=== PATIENT | female | born 1955 | race Caucasian/White ===

== ENCOUNTER 2018-05-21 17:57 | Inpatient (IN) | payer BC, OTHER ==
[~2018-05-21] VITALS: Ht 157.5 cm; Wt 78.6 kg
--- NOTE | ~2018-05-21 | PATH ---
[facility] [address] [place] [address] PATHOLOGY RPT PROCEDURE Name: PAULINA WADSWORTH Room #: 457-P [facility] IN .R.#: [id number] Admission: 05/21/18 Date of : 55 Discharge: 05/22/18 Report #: [id number] Path Case #: [id number] [facility] Accession Number: [id number] . 01 Material submitted: . GALLBLADDER . 01 Clinical history: . Cholecystitis, umbilical hernia . 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 . (SHA:vjm;05/26/2018) AGA/05/26/2018 . 02 Electronically signed: . Latrell Young MD, Pathologist NPI- [id number] . 01 Gross description: . The specimen is received in formalin, labeled "Paulina Wadsworth, gallbladder". Received is a previously opened gallbladder measuring 7.8 x 4.1 x 1.2 cm in greatest dimensions displaying bile-stained serosal surfaces. Further opening of the gallbladder reveals a velvety, bile-stained mucosa with mild, diffuse cholesterolosis, and a gallbladder wall thickness of 0.1 cm. Calculi are present displaying a bright yellow and nodular appearance, and no masses or lesions are noted grossly. Standards Engineer sections, to include the proximal margin, are submitted in cassette A1. (CAA; 05/23/2018) QAC/QAC . 02 Pathologist provided ICD-10: K80.10, K82.4 . 02 CPT . 263183 Specimen Comment: A courtesy copy of this report has been sent to Specimen Comment: [phone], , . Specimen Comment: Report sent to ,DR TAPIA / DR SENA Performed at: [address] [id number] MD Josr Lopez MD Phone: [phone] Performed at: [address] [address] PATHOLOGY RPT PROCEDURE Name: PAULINA WADSWORTH Room #: 457-P [facility] IN M.R.#: [id number] Admission: 05/21/18 Date of : 55 Discharge: 05/22/18 Report #: [id number] Path Case #: [id number] [address] [facility], [place], [place] [id number] MD Linda Collins MD Phone: [phone]
--- NOTE | ~2018-05-21 | O ---
[facility] [place] [address] OPERATIVE REPORT Name: LINDSEY DONAHUE Room #: 457-P [facility] IN .R.#: [id number] Admission: 05/21/18 Attend Phys: Roger Joseph MD Discharge: Date of : 55 Report #: [id number] THIS REPORT FOR: //name// CC: Shannon Joseph POSTOPERATIVE DIAGNOSES: 1. Symptomatic cholelithiasis, possible acute cholecystitis. 2. Elevated liver function tests, possible choledocholithiasis. 3. Umbilical hernia. 4. Hypertension. POSTOPERATIVE DIAGNOSES: 1. Acute cholecystitis. 2. Elevated liver function tests, possible choledocholithiasis. 3. Incarcerated umbilical hernia. 4. Hypertension. PROCEDURE: 1. Laparoscopic cholecystectomy with intraoperative cholangiogram. 2. Laparoscopic primary repair of incarcerated umbilical hernia. ANESTHESIA: General endotracheal anesthesia and local anesthetic. ESTIMATED BLOOD LOSS: 5 mL. SPECIMEN: Gallbladder. COMPLICATIONS: None appreciated. INDICATIONS FOR PROCEDURE: This is a 62-year-old female patient who has had difficulty with intermittent postprandial abdominal pain, nausea, and vomiting over the past 3-4 weeks. She was seen in the [facility], where she underwent an abdominal ultrasound showing multiple gallstones and gallbladder wall thickening to 5 mm with no common bile duct dilatation or pericholecystic fluid. Her liver function tests were elevated, more so at the time of her admission than the following day (today). Her bilirubin went from 1.7 to 1.0. Her transaminases and alkaline phosphatase remained elevated. She presents now for laparoscopic cholecystectomy with intraoperative cholangiogram. OPERATIVE FINDINGS: Upon entrance in the abdominal cavity, the liver, stomach, small bowel and colon in the surrounding area appeared otherwise normal. The gallbladder itself is slightly distended and upon dissection, was also edematous, indicative of acute cholecystitis. The critical view consisting of the cystic artery, cystic duct and lower edge of the gallbladder forming a window through which the liver was visible was seen prior to clipping the cystic [facility] [address] [place] [address] OPERATIVE REPORT Name: LINDSEY DONAHUE Room #: 457-P [facility] IN [facility].#: [id number] Admission: 05/21/18 Attend Phys: Roger Joseph MD Discharge: Date of : 55 Report #: [id number] duct for cholangiogram. The cholangiogram initially showed filling defects distally that appeared to have cleared with flushing and repeat cholangiogram. The final cholangiogram was read out by Radiology as normal, although the common bile duct did appear to be slightly dilated. Also, when creating the cystic duct opening, small gallstones were seen exiting from the opening that had likely been within the cystic duct. These were milked back before shooting the cholangiogram. The three clips were seen to be secure on the cystic duct stump. While removing the gallbladder from the abdominal cavity, the umbilical hernia defect was evident. This required placement of a separate 0 PDS suture for closure of the defect. There was no bowel involvement. The excised gallbladder showed cholesterolosis as well as multiple small nonpigmented gallstones. At the conclusion of the operation, the sponge, needle, and instrument counts were correct. No other significant intra-abdominal pathology was seen. DESCRIPTION OF PROCEDURE IN DETAIL: After the risks, benefits and expectations of the operation were discussed in detail with the patient, informed consent was obtained. The patient was identified in the preoperative holding area. The patient was given IV antibiotics as documented in the chart in line with [facility] metrics. The patient was then taken to the operating room and she was placed in the supine position. SCDs were placed on the patient's bilateral lower extremities and pneumatic compression was initiated. The patient was then given IV sedation and she was intubated without incident. Her abdomen was prepped and draped in the standard sterile fashion. A time-out was performed to identify the correct patient and procedure. Local anesthetic was infiltrated into the skin and subcutaneous tissue supraumbilically where a curvilinear incision was made with a #15 blade scalpel. Dissection was carried down to the fascia. A small fascial opening was created and the 11 mm Visiport was placed intraperitoneally with a 0-degree angled laparoscope. Pneumoperitoneum was then achieved with insufflation of carbon dioxide to 15 mmHg. A 30-degree angled laparoscope was inserted. The patient was placed in the reverse Trendelenburg position, rotated to her left. A subxiphoid 5 mm and right subcostal 5 mm ports x 2 were placed under direct visualization after local anesthetic was infiltrated into the skin and subcutaneous tissue and appropriately sized incisions were made. Operative findings are as noted above. The dome of the gallbladder was retracted in a cephalad direction. The omental adhesions to the gallbladder were carefully taken down with the ultrasound dissector. The gallbladder peritoneum was then scored medially and laterally with the ultrasonic dissector. Dissection was carried out around the cystic artery and cystic duct to identify the critical view as described above. A clip was then placed on the cystic duct at its junction with the neck of the gallbladder. A ductotomy was created sharply. Small gallstones were milked back from the cystic duct. The cholangiocatheter was then inserted and clipped into place. A cholangiogram was performed with findings as noted above. Repeat [address] [address] OPERATIVE REPORT Name: LINDSEY DONAHUE Room #: 457-P [facility] IN [facility]#: [id number] Admission: 05/21/18 Attend Phys: Roger Joseph MD Discharge: Date of : 55 Report #: [id number] cholangiogram showed clearance of the stones. The cholangiocatheter was then removed and the cystic duct was triply clipped, then divided with the ultrasound dissector with a good seal. The cystic artery was divided with the ultrasound dissector with good hemostasis. The gallbladder was then dissected out of the liver bed without entrance into the gallbladder or liver bed. The gallbladder was placed in an Endopouch and removed through the supraumbilical port. While doing so, the hernia was evident. There was no bowel involvement. The incarcerated umbilical hernia was reduced of its content. The excess preperitoneal fat that extended through the hernia was excised. A [id number] 0 PDS suture was then placed with the needle tipped suture grasper under direct visualization. The suture was tied under direct visualization to ensure no incorporation of intra-abdominal content. A 0 PDS suture was then placed to close the port site fascial opening. The suture was also tied under direct visualization to ensure no incorporation of intra-abdominal content. The liver bed was reexamined and the Hemoclips were secure. There was good hemostasis. No other significant findings were present. The abdominal cavity was then desufflated and the ports were removed. Interrupted subcuticular 4-0 Monocryl sutures and Dermabond were used to close the skin incisions. The patient tolerated the procedure well. She was awakened, extubated, and taken to recovery room in stable condition with no apparent intraoperative complications. By: [id number] Angel Buenrostro MD, FACS /nt
[2018-05-21 17:58] VITALS: BP 149/74
[2018-05-21 18:40] LABS: ABSOLUTE NEUTROPHILS 7.8 thou/uL (1.4-8.2); BASOPHILS 0.6 % (0.0-2.0); EOSINOPHILS 0.9 % (0.0-3.0); HEMATOCRIT 38.7 % (37.0-47.0); HEMOGLOBIN 13.4 gm/dL (12.0-15.0); LYMPHOCYTES 9.4 % (24.0-44.0); MCH 31.8 pg (26.0-34.0); MCHC 34.5 g/dL (28.0-37.0); MCV 92.3 fL (80.0-100.0); MONOCYTES 4.6 % (1.0-8.0); PLATELET COUNT 341 thou/uL (150-400); POLYS 84.5 % (36.0-66.0); RDW 13.2 % (10.5-14.5); WBC 9.3 thou/uL (4.0-11.0)
[2018-05-21 18:49] LABS: CALCIUM 9.6 mg/dL (8.5-10.1); CREATININE 0.9 mg/dL (0.6-1.0); POTASSIUM 3.6 mmol/L (3.5-5.1)
[2018-05-21 18:53] LABS: URINE BILIRUBIN NEGATIVE (Negative); URINE BLOOD TRACE (Negative); URINE CLARITY CLEAR; URINE COLOR YELLOW; URINE GLUCOSE-RANDOM* NEGATIVE (Negative); URINE KETONES NEGATIVE (Negative); URINE LEUKOCYTES-REFLEX NEGATIVE (Negative); URINE NITRITE-REFLEX NEGATIVE (Negative); URINE PROTEIN (DIPSTICK) NEGATIVE (Negative); URINE UROBILINOGEN 0.2 E.U./dl (0.2-1.0)
[2018-05-21 19:00] LABS: ALBUMIN 3.6 g/dL (3.4-5.0); DIRECT BILIRUBIN 1.2 mg/dL (<0.1-0.3); TOTAL BILIRUBIN 1.7 mg/dL (<0.1-1.0); TOTAL PROTEIN 7.7 g/dL (6.4-8.2)
[2018-05-21] MEDS ORDERED: COZAAR 25 MG TA25 M1 PO (19:08)
[2018-05-21] MEDS ORDERED: CLONAZEPAM 0.50.5 M1 PO (19:10)
[2018-05-21] MEDS ORDERED: CELEXA10 MG PO (19:10)
[2018-05-21 21:29] VITALS: BP 146/78
[2018-05-21 22:20] VITALS: BP 120/68
[2018-05-22] VITALS (7 sets, daily range): BP systolic 107–123; BP diastolic 56–71
[2018-05-22] MEDS ORDERED: CARDIZEM CD240 MG PO (01:57)
[2018-05-22 05:44] LABS: HEMATOCRIT 39.3 % (37.0-47.0); HEMOGLOBIN 13.2 gm/dL (12.0-15.0); MCH 31.2 pg (26.0-34.0); MCHC 33.7 g/dL (28.0-37.0); MCV 92.6 fL (80.0-100.0); RBC 4.24 mil/uL (4.20-5.00); WBC 5.5 thou/uL (4.0-11.0)
[2018-05-22 06:06] LABS: ALBUMIN 3.2 g/dL (3.4-5.0); CALCIUM 9.3 mg/dL (8.5-10.1); CREATININE 0.9 mg/dL (0.6-1.0); POTASSIUM 3.6 mmol/L (3.5-5.1)
[2018-05-22] MEDS ORDERED: SENNA-S TABLET1 EACH PO (10:51)
[2018-05-22] MEDS ORDERED: NORCO 5-325 TA1 EACH PO (10:51)
[2018-05-22 14:10] LABS: HAV IgM AB (ANTI-HAV IgM) Negative (Negative); HEPATITIS B SURFACE AG Negative (Negative); HEPATITIS C VIRUS AB <0.1 (0.0-0.9)
== END 2018-05-22 20:00 | disposition home or self-care (01) | DRG 418 ==
LOC: ER 17:57 → 4W 20:59 → EROBS 20:59 → 4W 21:42
PROVIDERS: Emergency Medicine; Nurse Practitioner Acute Care
PROC: BF121ZZ Fluoroscopy of Gallbladder using Low Osmolar Contrast (ICD-10-PCS; principal; 2018-05-22)
PROC: 0FT44ZZ Resection of Gallbladder, Percutaneous Endoscopic Approach (ICD-10-PCS; principal; 2018-05-22)
PROC: 0WQF4ZZ Repair Abdominal Wall, Percutaneous Endoscopic Approach (ICD-10-PCS; principal; 2018-05-22)
DX: K80.42 Calculus of bile duct with acute cholecystitis without obstruction (principal); K42.0 Umbilical hernia with obstruction, without gangrene; I10 Essential (primary) hypertension; G43.909 Migraine, unspecified, not intractable, without status migrainosus; R74.0 Nonspecific elevation of levels of transaminase and lactic acid dehydrogenase [LDH]; E80.6 Other disorders of bilirubin metabolism; Z88.1 Allergy status to other antibiotic agents; Z79.899 Other long term (current) drug therapy
CPT/HCPCS: 10040; 50010; 50101; 50249; 50411; 50555; 50558; 50962; 51975; 52265; 53307; 54022; 54118; 55245; 55317; 56462; 56525; 56526